=== PATIENT | female | born 1990 | race American Indian/Alaskan Native ===

== ENCOUNTER 2018-10-10 03:39 | Inpatient (IN) | payer OTHER ==
[2018-10-10 04:13] VITALS: BMI 25.0
[2018-10-10] MEDS ORDERED: Lactated Ringer's 1,000 ML IV SCH ×3 (06:00→18:45)
[2018-10-10] MEDS ORDERED: Lactated Ringer's 1,000 ML IV ONE (06:03)
[2018-10-10] MEDS ORDERED: Oxytocin 30 UNIT in NS 500 ml 30 UNITS/500 ML BAG IV ONE ×2 (06:12→10:17)
[2018-10-10] MEDS ORDERED: OXYTOCIN/0.9 % NS 20 UNIT/1,000 ML BAG IV ONE (06:13)
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
[2018-10-10 06:48] LABS: HEMOGLOBIN 8.9 g/dL (12.0-16.0); MEAN CELL VOLUME 81.2 fl (81.0-99.0); MEAN CORPUSCULAR HEMOGLOBIN 26.7 pg (27.0-31.0); MEAN CORPUSCULAR HGB CONC 32.9 g/dL (33.0-37.0); RBC 3.33 Mil/uL (3.80-5.20); RED CELL DISTRIBUTION WIDTH 15.3 % (11.5-14.5); WHITE BLOOD COUNT 10.7 K/uL (4.8-10.8)
[2018-10-10 07:01] LABS: ALBUMIN 3.5 g/dL (3.5-5.0); ALT/SGPT 15 U/L (9-52); AST/SGOT 17 U/L (14-36); BLOOD UREA NITROGEN 9 mg/dl (7-17); CALCIUM 8.4 mg/dL (8.4-10.2); GFR NON-AFRICAN AMERICAN > 60
[2018-10-10 08:34] LABS: SQUAMOUS EPITHIAL 1 /hpf (0-5); URINE BACTERIA RARE (<OCC); URINE BILIRUBIN NEGATIVE (NEGATIVE); URINE BLOOD NEGATIVE (NEGATIVE); URINE CLARITY SLIGHTY-CLOUDY (Clear); URINE COLOR YELLOW (YELLOW); URINE GLUCOSE (UA) NEG (NEGATIVE); URINE LEUKOCYTE ESTERASE TRACE Leu/uL (Negative); URINE PROTEIN NEGATIVE (NEGATIVE)
[2018-10-10 09:12] LABS: BARBITURATES, UR NEGATIVE (NEGATIVE); BENZODIAZEPINES, UR NEGATIVE (NEGATIVE); OPIATES, UR POSITIVE (NEGATIVE); PHENCYCLIDINE, UR NEGATIVE (NEGATIVE)
--- NOTE | 2018-10-10 09:42 | US ---
Date of service: 10/10/2018 PROCEDURE: Obstetrical ultrasound examination HISTORY: Placenta presentation + weight and week COMPARISON: Not available TECHNIQUE: Transabdominal FINDINGS: There is a single live intrauterine gestation identified in cephalic presentation. The heart rate is 151 beats per minute. A normal quantity of amniotic fluid is visualized. The MALICK is 13.39 cm. A normal posterior placenta is identified. Relationship of the placenta to the internal cervical os cannot be adequately assessed due to cephalic presentation in this late stage of gestation. The cervix is long and closed and measures 4.0 cm in length. biometry yields a gestational age of 37 weeks 1 day. The estimated weight is 3144 g. The JENA by ultrasound is 10/30/2018. A limited biophysical profile examination yields a score of 8 out of 8. IMPRESSION: Single live intrauterine gestation of approximately 37 weeks 1 day gestational age. Cephalic presentation. Posterior placenta. Placental relationship to the internal cervical os cannot be assessed on the basis of this examination. See above. EFW 3144 g. JENA 10/30/2018. BPP 8 out of 8.
--- NOTE | 2018-10-10 10:48 | OBPN ---
Datetime: 10/10/2018 10:20 IP Progress Impression: Normal progression of labor; Reassuring heart rate IP Informed Consent Obtain: Vaginal Delivery IP Progress Plan: Augmentation; Anesthesia consult; Anticipate Vaginal Delivery Membranes, Provider: Ruptured Contraction Comments Provider: occ IP Progress Note Comment: OB Hospitalist on-call. Sign out rec'd. She is and did not know she was preg until today + preg tet in ER. She had SROM and sono done 6+lb 37w size fundal/post placent a PH: back surgery/taking Perocset 5x / day Back no large scar noted - small scabs on her back SVE 3-4cm (latent phase oflabor) A: IUP at 37w by late sono early labor +UDS PHx Back surgery by history PLAN: rajinder explained to pt. she does not sen interested. She does not want epidural at all. S he will just 'deal with pain'. She understands about condition, labor, delivery, pain management opt ions and care. Dr Evans was called to speak with patient about emilee managment options. Patient did not want to talk with her. Refused XRay of back to eval for ?rods/pin locations. She just wants to get deli gabriel. Will start Pitocin augmentation. Social service consultation Dilatation, Provider: 3-4 Effacement, Provider: 80 Station, Provider: -2 Datetime: 10/10/2018 06:00 Pool Provider: Positive Nitrazine Provider: Positive Ferning Provider: Negative FHR - Baseline A Provider: 140 Gestation - Est Wks by US: 37? Presentation-Admit: Vertex Vital Signs Provider: Reviewed Vital Signs Provider Details: High blood pressure NICHD Accel Fetus A IP Provider: 15X15 FHR Category Provider Fetus A: Category II NICHD Variability Prov Fetus A: Moderate 6-25bpm NICHD Decel Fetus A IP Provider: Variable
[2018-10-10 11:31] VITALS: O2SAT 99
[2018-10-10] MEDS ORDERED: Nalbuphine HCL 10 mg/ml Ampule IVP ONE (13:05)
--- NOTE | 2018-10-10 13:07 | OBPN ---
Datetime: 10/10/2018 13:01 IP Progress Impression: Reassuring heart rate IP Progress Plan: Anesthesia consult; Anticipate Vaginal Delivery Pool Provider: Membranes, Provider: Ruptured Contraction Comments Provider: 2-3m FHR - Baseline A Provider: 130-140 Presentation-Admit: Vertex IP Progress Note Comment: She feels more lamb since Pitoicn started. She wants IV pain meds. She d oes not want epidural/Nitrous. Earlier, pain managment discussed incl risks/complcaitions. A; latnet phase of labor PLAN IV nubain x one dose NICHD Accel Fetus A IP Provider: 10X10 FHR Category Provider Fetus A: Category I NICHD Variability Prov Fetus A: Moderate 6-25bpm Dilatation, Provider: 5 Effacement, Provider: 80 Station, Provider: 2 NICHD Decel Fetus A IP Provider: None
[2018-10-10] MEDS ORDERED: Nalbuphine HCL 10 mg/ml Ampule ONE (13:15)
[2018-10-10] MEDS ORDERED: Lidocaine 1% Inj (20ml) ONE (14:00)
[2018-10-10] MEDS ORDERED: Labetalol 5mg/ml (4ml) IVP STA ×2 (15:46→16:22)
--- NOTE | 2018-10-10 16:01 | OBPPN ---
Datetime: 10/10/2018 15:58 PP Progress Note Prov: Notified of elevated BP 176/110 - will give Labetolol one dose. monitor BP; medical consult
[2018-10-10] MEDS ORDERED: Benzocaine/Menthol SPRAY TOP PRN (16:16)
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
[2018-10-10] MEDS: Oxycodone/Acetaminophen 5/325 mg Tab PO PRN ×2 (16:46→21:02)
[2018-10-10 17:04] LABS: HEPATITIS B SURFACE AG Negative (NEGATIVE)
[2018-10-10 17:22] LABS: HEPATITIS C ANTIBODY NEGATIVE (NEGATIVE)
[2018-10-10] MEDS ORDERED: Magnesium Sulfate 4 gm/100 ml 4 GM/100 ML BAG IV ONE (18:41)
[2018-10-10] MEDS: Magnesium Sul 40GM/1L SW 40 GM/1,000 ML ML IV ONE (19:31)
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
--- NOTE | 2018-10-10 19:53 | OBPPN ---
Datetime: 10/10/2018 18:50 PP Progress Note Prov: She was given Labetolol 20mg IVP, then again 40mg IVP. her BP continued to b e elevated... [place] explained to pt. She understands. Will start MgSO4 seizure prophylaxis. Her questoins answered.
[2018-10-11] MEDS: Oxycodone/Acetaminophen 5/325 mg Tab PO PRN ×5 (01:07→20:16)
[2018-10-11 09:12] LABS: BASO % 0.1 % (0.0-2.0); EOS % 0.3 % (0.0-4.0); HEMOGLOBIN 8.3 g/dL (12.0-16.0); LYMPH # 1.9 K/uL (1.0-4.3); MEAN CELL VOLUME 82.4 fl (81.0-99.0); MEAN CORPUSCULAR HEMOGLOBIN 26.8 pg (27.0-31.0); MEAN CORPUSCULAR HGB CONC 32.5 g/dL (33.0-37.0); MEAN PLATELET VOLUME 8.7 fl (7.2-11.7); MONO # 0.8 K/uL (0.0-0.8); MONO % 7.5 % (0.0-10.0); NEUT # 7.9 K/uL (1.8-7.0); NEUT % 74.1 % (50.0-75.0); RBC 3.11 Mil/uL (3.80-5.20); RED CELL DISTRIBUTION WIDTH 15.1 % (11.5-14.5); WHITE BLOOD COUNT 10.7 K/uL (4.8-10.8)
[2018-10-11] MEDS ORDERED: NIFEdipine 60 mg ER Tab PO SCH (15:45)
--- NOTE | 2018-10-11 15:49 | CP.PCM.CON ---
History of Present Illness - History of Present Illness History of Present Illness: Asked to see pt for post HTN. 28 y/o female with significantly elevated bp on admission which continued post delivery. pt admits to a 3 year hx of HTN and noncompliance with med regimen. Pt denies cp, sob, palp, lh, dizziness, syncope. no fam hx of cad. positive fam hx of htn. pt was placed on labetalol and mag drip however bp remains elevated. Review of Systems - Constitutional Constitutional: As Per HPI. absent: Anorexia, Chills, Daytime Sleepiness, Excessive Sweating, Fatigue, Fever, Frequent Falls, Headache, Increased Appetite, Lethargy, Malaise, Night Sweats, Snoring, Sleep Apnea, Weight Gain, Weight Loss, Weakness, Other - EENT Eyes: As Per HPI. absent: Blind Spots, Blurred Vision, Change in Vision, Decreased Night Vision, Diplopia, Discharge, Dry Eye, Exophthalmos, Floaters, Irritation, Itchy Eyes, Loss of Peripheral Vision, Pain, Photophobia, Requires Corrective Lenses, Sees Flashes, Spots in Vision, Tunnel Vision, Other Visual Disturbances, Loss of Vision, Other Ears: As Per HPI. absent: Decreased Hearing, Ear Discharge, Ear Pain, Tinnitus, Abnormal Hearing, Disequilibrium, Dizziness, Other Nose/Mouth/Throat: As Per HPI. absent: Epistaxis, Nasal Congestion, Nasal Discharge, Nasal Obstruction, Nasal Trauma, Nose Pain, Post Nasal Drip, Sinus Pain, Sinus Pressure, Bleeding Gums, Change in Voice, Dental Pain, Dry Mouth, Dysphagia, Halitosis, Hoarsness, Lip Swelling, Mouth Lesions, Mouth Pain, Odynophagia, Sore Throat, Throat Swelling, Tongue Swelling, Facial Pain, Neck Pain, Neck Mass, Other - Breasts Breasts: As Per HPI. absent: Change in Shape, Mass, Pain, Nipple Discharge, Nipple Inversion, Skin Changes, Swelling, Other - Cardiovascular Cardiovascular: As Per HPI. absent: Acrocyanosis, Chest Pain, Chest Pain at Rest, Chest Pain with Activity, Claudication, Diaphoresis, Dyspnea, Dyspnea on Exertion, Edema, Irregular Heart Rhythm, Pain Radiating to Arm/Neck/Jaw, Leg Edema, Leg Ulcers, Lightheadedness, Orthopnea, Palpitations, Paroxysmal Nocturnal Dyspnea, Pedal Edema, Radiating Pain, Rapid Heart Rate, Slow Heart Rate, Syncope, Other - Respiratory Respiratory: As Per HPI. absent: Cough, Dyspnea, Hemoptysis, Dyspnea on Exertion, Wheezing, Snoring, Stridor, Pain on Inspiration, Chest Congestion, Excessive Mucous Production, Change in Mucous Color, Pain with Coughing, Other - Gastrointestinal Gastrointestinal: As Per HPI. absent: Abdominal Pain, Belching, Bloating, Change in Bowel Habits, Change in Stool Character, Coffee Ground Emesis, Constipation, Cramping, Diarrhea, Dyspepsia, Dysphagia, Early Satiety, Excessive Flatus, Fecal Incontinence, Heartburn, Hematemesis, Hematochezia, Loose Stools, Melena, Nausea, Odynophagia, Temesmus, Vomiting, Other - Genitourinary Genitourinary: As Per HPI. absent: Change in Urinary Stream, Difficulty Urinating, Dysuria, Flank Pain, Hematuria, Pyuria, Nocturia, Urinary Incontinence, Urinary Frequency, Urinary Hesitance, Urinary Urgency, Voiding Freq/Small Amts, Freq UTI, Hx Renal/Bladder Calculi, Hx /Renal Surgery, Bladder Distension, Other - Reproductive: Female Reproductive:Female: As Per HPI. absent: Amenorrhea, Amenorrhea/ Control, Currently Menstual, Cycle <21 Days, Cycle >35 Days, Cycle Variable, Menses 1-7 Days, Menses >/= 8 Days, Menses Variable, Cycle > 4 Weeks Between, No Menses for 6 Months, Heavy Menses, Light Menses, Normal Menses, Spotting Between Cycles, S/P Hysterectomy, Menopausal, Post Menopausal, Premenarche, Abnormal Vaginal Bleeding, Dysmenorrhea, Dyspareunia, Genital Lesions, Genital Pruritis, Pelvic Pain, Prolapse Symptoms, Sexual Dysfunction, Vaginal Discharge, Vaginal Dryness, Vaginal Odor, Vaginal Pruritis, Other - Menstruation Menstruation: As Per HPI. absent: Amenorrhea, Amenorrhea/ Control, Currently Menstual, Cycle <21 Days, Cycle >35 Days, Cycle Variable, Menses 1-7 Days, Menses >/= 8 Days, Menses Variable, Cycle > 4 Weeks Between, No Menses for 6 Months, Heavy Menses, Light Menses, Normal Menses, Spotting Between Cycles, S/P Hysterectomy, Menopausal, Post Menopausal, Premenarche, Abnormal Vaginal Bleeding, Dysmenorrhea, Other - Musculoskeletal Musculoskeletal: As Per HPI. absent: Abnormal Gait, Arthralgias, Atrophy, Back Pain, Deformity, Joint Swelling, Limited Range of Motion, Loss of Height, Muscle Cramps, Muscle Weakness, Myalgias, Neck Pain, Numbness, Radiating Pain into Li mb, Stiffness, Tingling, Other - Integumentary Integumentary: As Per HPI. absent: Acne, Alopecia, Bleeding Lesions, Change in Hair, Change in Nails, Change in Pigmentation, Changing Lesions, Dry Skin, Erythema, Furuncle, Hirsutism, Lesions, New Lesions, Non-Healing Lesions, Photosensitivity, Pruritus, Rash, Skin Pain, Skin Ulcer, Sores, Striae, Swelling, Unusual Bruising, Wounds, Jaundice, Other - Neurological Neurological: As Per HPI. absent: Abnormal Gait, Abnormal Hearing, Abnormal Movements, Abnormal Speech, Behavioral Changes, Burning Sensations, Confusion, Convulsions, Disequilibrium, Dizziness, Numbness, Focal Weakness, Frequent Falls, Headaches, Lack of Coordination, Loss of Vision, Memory Loss, Paresth esias, Radicular Pain, Restless Legs, Sensory Deficit, Syncope, Tingling, Tremor, Vertigo, Weakness, Other Visual Disturbances, Other - Psychiatric Psychiatric: As Per HPI. absent: Abnormal Sleep Pattern, Anhedonia, Anxiety, Auditory Hallucinations, Behavioral Changes, Change in Appetite, Change in Libido, Confusion, Depression, Difficulty Concentrating, Hallucinations, Homicidal Ideation, Hopelessness, Irritability, Memory Loss, Mood Swings, Panic Attacks, Paranoia, Suicidal Ideation, Visual Hallucinations, Tactile Hallucinations, Other - Endocrine Endocrine: As Per HPI. absent: Change in Body Appearance, Change in Libido, Cold Intolorance, Deepening of Voice, Excessive Sweating, Fatigue, Flushing, Heat Intolorance, Increase in Ring/Shoe/Hat Size, Palpitations, Polydipsia, Polyphagia, Polyuria, Other - Hematologic/Lymphatic Hematologic: As Per HPI. absent: Easy Bleeding, Easy Bruising, Lymphadenopathy, Other Past Patient History - Past Medical History & Family History Past Medical History?: Yes Past Family History: Reviewed and not pertinent - Past Social History Smoking Status: Never Smoked Chewing Tobacco Use: No Cigar Use: No Alcohol: Occasional Drugs: Denies Home Situation {Lives}: Alone - CARDIAC Hx Cardiac Disorders: Yes Hx Hypertension: Yes - PULMONARY Hx Respiratory Disorders: No - NEUROLOGICAL Hx Neurological Disorder: No - HEENT Hx HEENT Problems: No - RENAL Hx Chronic Kidney Disease: No - ENDOCRINE/METABOLIC Hx Endocrine Disorders: No - HEMATOLOGICAL/ONCOLOGICAL Hx Blood Disorders: No - INTEGUMENTARY Hx Dermatological Problems: No - MUSCULOSKELETAL/RHEUMATOLOGICAL Hx Musculoskeletal Disorders: No - GASTROINTESTINAL Hx Gastrointestinal Disorders: No - GENITOURINARY/GYNECOLOGICAL Hx Genitourinary Disorders: No - PSYCHIATRIC Hx Psychophysiologic Disorder: No - SURGICAL HISTORY Hx Surgeries: No - ANESTHESIA Hx Anesthesia: No Meds Allergies/Adverse Reactions: Allergies Allergy/AdvReac Type Severity Reaction Status Date / Time No Known Allergies Allergy Verified 10/10/18 04:04 - Medications Medications: Current Medications Benzocaine/Menthol (Dermoplast) 1 sprays TOP Q6 PRN PRN Reason: Perineal Discomfort Lactated Ringer's (Lactated Ringer's) 1,000 mls @ 75 mls/hr IV .[id number] [facility] Last Admin: 10/11/18 04:00 Dose: 75 mls/hr Nifedipine (Procardia Xl) 60 mg PO DAILY [facility] Oxycodone/Acetaminophen (Percocet 5/325 Mg Tab) 1 tab PO Q4H PRN PRN Reason: Pain, moderate (4-7) Stop: 10/13/18 16:31 Last Admin: 10/11/18 15:44 Dose: 1 tab Physical Exam - Constitutional Appears: Non-toxic - Head Exam Head Exam: ATRAUMATIC, NORMAL INSPECTION, NORMOCEPHALIC - Eye Exam Eye Exam: EOMI, Normal appearance, PERRL. absent: Conjunctival injection, Nystagmus, Periorbital swelling, Periorbital tenderness, Scleral icterus Pupil Exam: NORMAL ACCOMODATION, PERRL. absent: Fixed, Irregular, Miosis, Mydriatic, Unequal - ENT Exam ENT Exam: Mucous Membranes Moist, Normal Exam. absent: Mucous Membranes Dry, Normal External Ear Exam, Normal Oropharynx, TM's Normal Bilaterally - Neck Exam Neck exam: Positive for: Normal Inspection. Negative for: Full Rom, Lymphadenopathy, Meningismus, Tenderness, Thyromegaly - Respiratory Exam Respiratory Exam: Clear to Auscultation Bilateral, NORMAL BREATHING PATTERN. absent: Accessory Muscle Use, Chest Wall Tenderness, Decreased Breath Sounds, Prolonged Expiratory Phase, Rales, Rhonchi, Wheezes, Respiratory Distress, Stridor - Cardiovascular Exam Cardiovascular Exam: REGULAR RHYTHM, +S1, +S2. absent: Bradycardia, Tachycardia, Clicks, Diastolic murmur, Gallop, Irregular Rhythm, JVD, RRR, Rubs, +S4, Systolic Murmur - GI/Abdominal Exam GI & Abdominal Exam: Normal Bowel Sounds, Soft. absent: Bruit, Diminished Bowel Sounds, Distended, Firm, Guarding, Hernia, Hyperactive Bowel Sounds, Hypoactive Bowel Sounds, Mass, Organomegaly, Pulsatile Mass, Rebound, Rigid, Tenderness - Rectal Exam Rectal Exam: Deferred - Extremities Exam Extremities exam: Positive for: normal inspection. Negative for: calf tenderness, full ROM, joint swelling, normal capillary refill, pedal edema, tenderness, pedal pulses present - Back Exam Back exam: NORMAL INSPECTION. absent: CVA tenderness (L), CVA tenderness (R), FULL ROM, muscle spasm, paraspinal tenderness, rash noted, tenderness, vertebral tenderness - Neurological Exam Neurological exam: Alert, CN II-XII Intact, Normal Gait, Oriented x3, Reflexes Normal - Psychiatric Exam Psychiatric exam: Normal Affect, Normal Mood - Skin Skin Exam: Dry, Intact, Normal Color, Warm Results - Vital Signs Recent Vital Signs: Last Vital Signs Temp 98.0 F 10/10/18 04:05 Pulse 96 H 10/10/18 11:29 Resp 18 10/10/18 11:29 BP 130/79 10/10/18 11:29 Pulse Ox 99 10/10/18 11:29 - Labs Result Diagrams: 10/11/18 08:50 10/10/18 06:30 Labs: Laboratory Results - last 24 hr 10/10/18 10/10/18 10/10/18 06:30 06:30 06:30 WBC RBC Hgb Hct MCV MCH MCHC RDW Plt Count MPV Neut % (Auto) Lymph % (Auto) Kimble % (Auto) Eos % (Auto) Baso % (Auto) Neut # (Auto) Lymph # (Auto) Kimble # (Auto) Eos # (Auto) Baso # (Auto) POC Glucose (mg/dL) Magnesium RPR Nonreactive C.trachomatis RNA (TMA) Hep Bs Antigen Negative Hepatitis C Antibody Negative N.gonorrhoeae RNA (TMA) Rubella IgG Antibody Positive 10/10/18 10/10/18 10/11/18 08:15 16:20 00:18 WBC RBC Hgb Hct MCV MCH MCHC RDW Plt Count MPV Neut % (Auto) Lymph % (Auto) Kimble % (Auto) Eos % (Auto) Baso % (Auto) Neut # (Auto) Lymph # (Auto) Kimble # (Auto) Eos # (Auto) Baso # (Auto) POC Glucose (mg/dL) 70 Magnesium 4.2 H RPR C.trachomatis RNA (TMA) Not detected Hep Bs Antigen Hepatitis C Antibody N.gonorrhoeae RNA (TMA) Not detected Rubella IgG Antibody 10/11/18 10/11/18 08:50 08:50 WBC 10.7 RBC 3.11 L Hgb 8.3 L Hct 25.6 L MCV 82.4 MCH 26.8 L MCHC 32.5 L RDW 15.1 H Plt Count 200 MPV 8.7 Neut % (Auto) 74.1 Lymph % (Auto) 18.0 L Kimble % (Auto) 7.5 Eos % (Auto) 0.3 Baso % (Auto) 0.1 Neut # (Auto) 7.9 H Lymph # (Auto) 1.9 Kimble # (Auto) 0.8 Eos # (Auto) 0.0 Baso # (Auto) 0.0 POC Glucose (mg/dL) Magnesium 5.1 H* D RPR C.trachomatis RNA (TMA) Hep Bs Antigen Hepatitis C Antibody N.gonorrhoeae RNA (TMA) Rubella IgG Antibody Assessment & Plan (1) HTN (hypertension) Status: Acute (2) hypertension Status: Acute (3) Pre-eclampsia added to pre-existing hypertension Status: Acute - Assessment and Plan (Free Text) Plan: pt will be switched to nifedipine 60mg q24 hours. may give first dose now. recommend limiting ivf given bp. will follow total time 45 min.
[2018-10-11] MEDS ORDERED: Magnesium Sul 40GM/1L SW 40 GM/1,000 ML ML IV ONE (16:00)
[2018-10-11] MEDS: Magnesium Sul 40GM/1L SW 40 GM/1,000 ML ML IV ONE (16:00)
[2018-10-11] MEDS ORDERED: NIFEdipine 30 mg ER Tab PO SCH (17:00)
[2018-10-11] MEDS ORDERED: Benzocaine/Menthol SPRAY TOP PRN (20:27)
[2018-10-12] MEDS: Oxycodone/Acetaminophen 5/325 mg Tab PO PRN ×2 (01:13→08:50)
[2018-10-12] MEDS ORDERED: NIFEdipine 60 mg ER Tab PO SCH (09:00)
--- NOTE | 2018-10-12 11:37 | OBPPN ---
Datetime: 10/12/2018 06:06 PP Pain Prov: Within normal limits PP Nausea Prov: Denies PP Flatus Prov: Yes PP BM Prov: Yes PP Breasts Prov: Not Done PP Heart Prov: Normal PP Lungs Prov: Normal PP Abdomen/Uterus Prov: Normal PP Lochia Prov: Normal PP Vulva/Perineum Prov: Not Done PP CVA Tenderness Prov: Normal PP Extremities Prov: Normal PP C/S Incision Prov: Not Applicable PP Progress Prov: Normal PP Impression Prov: Induced Hypertension PP Plan Prov: Continue present management PP Progress Note Prov: 28 YO , PPD 2 s/p on 10/10/18. Seen and examined at bedside Ambulate without difficulties. Pt is breast and bottle feedingT Tolerating regular diet. Denies chest pain, headache, visual changes, SOB. ROS: all systems reviewed and negative except per HPI Physical exam: VS: Elevated BP noted Gen: NAD HEENT: NCAT Cardio: + S1S2, RRR Lungs: CTA B/L, no wheezes Abd: soft, appropriate tenderness to palpation, + BS, Uterus firm below level of umbilicus Ext: No edema, calves non tender Assessment: Pt is a 28 YO , PPD 2 s/p on 10/10/18 with preeclampsia after . Plan: - and ambulation encouraged. - Ibuprofen 600 mg 1 tab Q 6h PRN mild pain -Continue vitamin -Discontinue labetalol and MG -Cont Procardia 60mg - Cont to monitor BPs Katerin Pat Case discussed with attending Addendum by Dr. Posada: I have evaluated the patient independently and I agree with the above. The patient is to be discharged with script for Procardia 60mg XL PO daily, instructions for BP monitorin g at home and pre-eclamptic precautions. Patient instructed to follow up with a provider in 2 wks and then in 6 wks. All questions answered Vital Signs Provider PP: Reviewed Vital Signs Provider Details PP: Elevated BP, improving on procardia 60mg Datetime: 10/11/2018 06:02 PP Comments Phys Exam Prov: See note
--- NOTE | 2018-10-12 11:37 | OBDCSUM ---
Datetime: 10/12/2018 11:32 Discharged to, Provider: Home Follow up at, Provider: an OB provider Disch Instr Activity: Normal activity Disch Instr Diet: Regular Discharge Instructions, Provider: Routine instructions given Discharge Diagnosis, Provider: Term Delivered Discharge Time: 10/12/2018 11:32 Follow up in weeks, Provider: 2 wks and 6 wks Disch Referrals: None Contraception discussed, Prov: No Discharge Diagnosis Prov Other: CHTN
[2018-10-12 21:37] VITALS: BP 152/101; PULSE 97; RESP 20; TEMP 98.2
[2018-10-12] MEDS ORDERED: NIFEdipine 30 mg ER Tab PO SCH (22:00)
== END 2018-10-12 15:48 | disposition home or self-care (01) | DRG 372 ==
LOC: H.EROB2 03:39 → H.L&D 06:02 → H.OB/GYN 10-11 20:28
PROVIDERS: ADMIT Obstetrics & Gynecology; ATTEND Obstetrics & Gynecology
PROC: 10E0XZZ Delivery of Products of Conception, External Approach (ICD-10-PCS; principal; 2018-10-10)
PROC: 4A1HXCZ Monitoring of Products of Conception, Cardiac Rate, External Approach (ICD-10-PCS; 2018-10-10)
DX: O10.92 Unspecified pre-existing hypertension complicating childbirth (principal); O69.81X0 Labor and delivery complicated by cord around neck, without compression, not applicable or unspecified; Z3A.37 37 weeks gestation of pregnancy; Z37.0 Single live birth; Z82.49 Family history of ischemic heart disease and other diseases of the circulatory system; Z83.3 Family history of diabetes mellitus; Z87.891 Personal history of nicotine dependence; Z91.14 Patient's other noncompliance with medication regimen